=== PATIENT | male | born 1950 | race Caucasian/White ===

== ENCOUNTER → 2017-12-03 | Outpatient (CLI) | payer OTHER ==
--- NOTE | ~2017-12-03 | 2DMMODE ---
[facility] [place] [address] 2 D/M-MODE ECHOCARDIOGRAM Name: ARTUROAMBAR TRUDI Room #: REG [facility]#: [id number] Admission: 12/03/17 Attend Phys: Jignesh Solis MD Discharge: Date of : 50 Date of Service: 12/03/17 0919 Report #: [id number] THIS REPORT FOR: //name// APPROVED REPORT Study performed: 12/03/2017 08:08:06 EXAM: Comprehensive 2D, Doppler, and color-flow Echocardiogram Patient Location: Out-Patient Status: routine BSA: 1.88 HR: 56 bpm BP: 116/78 mmHg Rhythm: NSR Other Information Study Quality: Adequate/low parasternal window. Indications CAD Hx: ND's stents. 2D Dimensions RVDd: 30.15 mm IVSd: 7.25 (7-11mm) LVOT Diam: 22.92 (18-24mm) LVDd: 47.45 mm PWd: 6.47 (7-11mm) LVDs: 28.54 (25-40mm) Aortic Root: 37.92 mm Volumes Left Atrial Volume (Systole) Single Plane 4CH: 28.24 mL Single Plane 2CH: 37.15 mL LA ESV Index: 18.00 mL/m2 Aortic Valve AoV Peak Corey.: 1.01 m/s AO Peak Gr.: 4.08 mmHg LVOT Max P.51 mmHg LVOT Max V: 0.79 m/s JEFFRY Vmax: 3.23 cm2 Mitral Valve E/A Ratio: 0.9 MV Decel. Time: 238.98 ms [facility] [place] [address] 2 D/M-MODE ECHOCARDIOGRAM Name: AMBAR MORRIS Room #: REG [facility]#: [id number] Admission: 12/03/17 Attend Phys: Jignesh Solis MD Discharge: Date of : 50 Date of Service: 12/03/17 0919 Report #: [id number] MV E Max Corey.: 0.42 m/s MV A Croey.: 0.48 m/s MV PHT: 69.30 ms IVRT: 119.95 ms Pulmonary Valve PV Peak Corey.: 0.93 m/s PV Peak Gr.: 3.48 mmHg Pulmonary Vein P Vein S: 0.58 m/s P Vein A: 0.35 m/s P Vein D: 0.40 m/s P Vein A Dur.: 101.5 msec P Vein S/D Ratio: 1.45 Tricuspid Valve TR Peak Corey.: 2.35 m/s RAP Estimate: 5.00 mmHg TR Peak Gr.: 22.07 mmHg PA Pressure: 27.00 mmHg Left Ventricle The left ventricle is normal size. There is normal left ventricular wall thickness. Left ventricular systolic function is normal. LVEF is 50-55%. Mild diastolic dysfunction is present (impaired relaxation pattern). Right Ventricle The right ventricle is normal size. The right ventricular systolic function is normal. Atria The left atrium size is normal. The right atrium size is normal. Aortic Valve Aortic valve leaflets are mildly thickened and calcified. No aortic regurgitation is present. There is no aortic valvular stenosis. Mitral Valve The mitral valve is normal in structure. Mild mitral regurgitation. Tricuspid Valve The tricuspid valve is normal in structure. Mild tricuspid regurgitation. Estimated PAP is 25-30mmHg. Pulmonic Valve [facility] [place] [address] 2 D/M-MODE ECHOCARDIOGRAM Name: MORRISAMBARJUNE BRUSH Room #: REG CL [facility]#: [id number] Admission: 12/03/17 Attend Phys: Jignesh Solis MD Discharge: Date of : 50 Date of Service: 12/03/17 0919 Report #: [id number] The pulmonary valve is normal in structure. Mild pulmonic regurgitation. Great Vessels The aortic root measures at the upper limits of normal. Ascending aorta is not well visualized. IVC is normal in size and collapses >50% with inspiration. Pericardium There is no pericardial effusion. <Conclusion> The left ventricle is normal size. Left ventricular systolic function is normal. Mild diastolic dysfunction is present (impaired relaxation pattern). The right ventricle is normal size. The left atrium size is normal. Aortic valve leaflets are mildly thickened and calcified. Mild mitral regurgitation. Mild tricuspid regurgitation. Estimated PAP is 25-30mmHg. <ELECTRONICALLY SIGNED> By: Jignesh Solis MD 12/03/17918 8 8 Jignesh Solis MD /INF
== END ==
LOC: NUC 07:23
DX: I25.10 Atherosclerotic heart disease of native coronary artery without angina pectoris (principal); I08.1 Rheumatic disorders of both mitral and tricuspid valves

== ENCOUNTER → 2019-12-04 | Outpatient (CLI) | payer OTHER | LOC: SJCVC 11:02 | PROVIDERS: ATTEND Internal Medicine Cardiovascular Disease | DX: E78.00 Pure hypercholesterolemia, unspecified (principal); I25.10 Atherosclerotic heart disease of native coronary artery without angina pectoris; I10 Essential (primary) hypertension; Z79.899 Other long term (current) drug therapy; Z87.891 Personal history of nicotine dependence ==

== ENCOUNTER → 2019-12-12 | Outpatient (CLI) | payer OTHER | LOC: SJCVC 14:56 | PROVIDERS: ATTEND Internal Medicine Cardiovascular Disease | DX: I25.10 Atherosclerotic heart disease of native coronary artery without angina pectoris (principal); E78.00 Pure hypercholesterolemia, unspecified; I10 Essential (primary) hypertension ==

== ENCOUNTER → 2019-12-12 | Outpatient (CLI) | payer OTHER ==
--- NOTE | 2019-12-12 15:37 | EXE ---
[facility] [address] [address] STRESS ECHOCARDIOGRAM Name: AMBAR MORRIS [id number] Admission: 12/12/19 Attend Phys: Jignesh Solis MD Discharge: Date of : 50 Report #: [id number] THIS REPORT FOR: cc: Neri Oquendo James A. DO Park, Jin S. MD ~ THIS REPORT FOR: //name// APPROVED REPORT Study performed: 12/12/2019 13:37:39 Exam: Stress Echocardiogram Indication: CAD s/p PCI Patient Location: Out-Patient Stress Nurse: Kate Bonilla RN Room #: 2 Status: routine Ht: 5 ft 11 in HR: 65 bpm BP: 126/72 mmHg Rhythm: NSR Medical History Cardiac Risk Factors: HTN, Hyperlipidemia Previous Cardiac Procedures: PCI Exercise History: Physically active Procedure The patient underwent an Exercise Stress Test using the Christian Protocol. Blood pressure, heart rate, and EKG were monitored. An Echocardiogram was performed by paint prep technician in four stages in quad fashion. At peak stress, four selected images were obtained and placed side by side with resting images for comparison. Stress Test Details Stress Test: Exercise stress testing was performed using a Christian protocol. HR Resting HR: 65 bpm Max Heart Rate (APMHR): 151 bpm Max HR Achieved: 151 bpm Target HR (85% APMHR): 128 bpm % of APMHR: 100 Recovery HR: 81 bpm HR response to stress: Normal HR response to stress [facility] [address] [place] [address] STRESS ECHOCARDIOGRAM Name: AMBAR MORRIS Room #: REG [facility]#: [id number] Admission: 12/12/19 Attend Phys: Jignesh Solis MD Discharge: Date of : 50 Report #: [id number] Resting BP: 126/72 mmHg Max BP: 134/86 mmHg Recovery BP: 110/80 mmHg BP response to stress: Normal blood pressure response to stress. ECG Resting ECG: Sinus Rhythm Stress ECG: Sinus Rhythm, nonspecific ST-T abnormalities ST Change: Non-ischemic Clinical Reason for Termination: Maximal effort Exercise duration: 6 min 31 sec Highest Stage Achieved: Stage 3: 3.4 mph at 14% grade. Exercise capacity: 8.5 METs Overall Exercise Capacity for Age: Good Pre-Stress Echo The resting Echocardiogram showed normal left ventricular contractility with an estimated Ejection Fraction of about >55%. The resting echocardiogram demonstrated normal wall motion in all wall segments. Post-Stress Echo The stress Echocardiogram showed normal left ventricular contractility with an estimated Ejection Fraction of about 65-70%. Compared to rest, there were no stress-induced wall motion abnormalities. Conclusion Clinical Response: Non-ischemic Exercise Capacity: Average Stress ECG Response: Non-ischemic Stress Echo Images: Non-ischemic The left ventricle is normal in size and wall thickness in both the rest and stress images. Other Information Study Quality: Good <Conclusion> [facility] [address] [place] [address] STRESS ECHOCARDIOGRAM Name: AMBAR MORRIS Room #: REG CL [facility].#: [id number] Admission: 12/12/19 Attend Phys: Jignesh Solis MD Discharge: Date of : 50 Report #: [id number] The left ventricle is normal in size and wall thickness in both the rest and stress images. <ELECTRONICALLY SIGNED> By: Jignesh Solis MD 12/12/19 1536 [id number] Jignesh Solis MD /INF
== END ==
LOC: CV 13:25
PROVIDERS: ATTEND Internal Medicine Cardiovascular Disease
DX: I25.10 Atherosclerotic heart disease of native coronary artery without angina pectoris (principal)